=== PATIENT | female | born 1995 | race Caucasian/White ===

== ENCOUNTER 2016-04-19 16:24 | Emergency (ER) | payer SELFPAY ==
[~2016-04-19] VITALS: Ht 170.2 cm; Wt 80.7 kg
[2016-04-19 16:37] VITALS: BP 136/78
== END 2016-04-19 17:22 | disposition home or self-care (01) ==
LOC: ER 16:28
DX: J06.9 Acute upper respiratory infection, unspecified (principal)
CPT/HCPCS: A4606; Z7610

== ENCOUNTER 2016-04-21 10:52 | Emergency (ER) | payer OTHER ==
[~2016-04-21] VITALS: Ht 170.2 cm; Wt 74.8 kg
[2016-04-21 11:11] VITALS: BP 134/75
== END 2016-04-21 11:35 | disposition home or self-care (01) ==
LOC: ER 10:53
DX: T78.40XA Allergy, unspecified, initial encounter (principal); J06.9 Acute upper respiratory infection, unspecified; X58.XXXA Exposure to other specified factors, initial encounter
CPT/HCPCS: 99283; A4606; Z7610